=== PATIENT | female | born 1980 ===

== ENCOUNTER → 2020-03-25 | Outpatient (REF) | payer BC ==
[2020-05-19 04:54] LABS: HCG, SERUM QUANTITATIVE < 1.0 MIU/ML; PROGESTERONE 11.66 NG/ML
== END ==
LOC: M LABDRAWC 12:46
PROVIDERS: ATTEND Obstetrics & Gynecology Reproductive Endocrinology
DX: Z32.00 Encounter for pregnancy test, result unknown (principal)